=== PATIENT | female | born 1970 | race Two or more races ===

== ENCOUNTER 2018-09-22 17:13 | Emergency (ER) | payer OTHER ==
[~2018-09-22] VITALS: Ht 154.9 cm; Wt 93.0 kg
[~2018-09-22 17:13] MED LIST: CLEOCIN HCL300 MG PO; IBUPROFEN800 MG PO; ULTRAM50 MG PO
[2018-09-22] MEDS ORDERED: METIMAZOL (17:33)
== END 2018-09-22 19:34 | disposition home or self-care (01) ==
LOC: ER 17:13
DX: J11.1 Influenza due to unidentified influenza virus with other respiratory manifestations (principal)

== ENCOUNTER 2019-05-25 16:57 | Emergency (ER) | payer OTHER ==
[~2019-05-25] VITALS: Ht 157.5 cm; Wt 106.1 kg
[~2019-05-25 16:57] MED LIST changes: +METIMAZOL
== END 2019-05-25 19:59 | disposition home or self-care (01) ==
LOC: ER 16:57
DX: R53.1 Weakness (principal)

== ENCOUNTER 2023-05-06 07:19 | Outpatient (CLI) | payer OTHER | END 2023-05-06 07:21 | disposition home or self-care (01) | LOC: NUCLEAR 07:19 | DX: E05.00 Thyrotoxicosis with diffuse goiter without thyrotoxic crisis or storm (principal); I73.89 Other specified peripheral vascular diseases ==

== ENCOUNTER 2023-05-07 07:37 | Outpatient (CLI) | payer OTHER | END 2023-05-07 07:49 | disposition home or self-care (01) | LOC: NUCLEAR 07:37 | DX: E05.00 Thyrotoxicosis with diffuse goiter without thyrotoxic crisis or storm (principal) ==

== ENCOUNTER 2023-06-28 10:11 | Emergency (ER) | payer OTHER ==
[~2023-06-28] VITALS: Ht 154.9 cm; Wt 99.8 kg
== END 2023-06-28 18:24 | disposition home or self-care (01) ==
LOC: ER 10:11
PROVIDERS: Emergency Medicine
DX: R10.32 Left lower quadrant pain (principal); N20.0 Calculus of kidney; K76.0 Fatty (change of) liver, not elsewhere classified; E11.9 Type 2 diabetes mellitus without complications; Z79.84 Long term (current) use of oral hypoglycemic drugs; I10 Essential (primary) hypertension; E03.9 Hypothyroidism, unspecified

== ENCOUNTER 2024-04-11 09:04 | Outpatient (CLI) | payer OTHER | END 2024-04-11 09:14 | disposition home or self-care (01) | LOC: SONOGRAMA 09:04 | DX: E05.90 Thyrotoxicosis, unspecified without thyrotoxic crisis or storm (principal); E04.1 Nontoxic single thyroid nodule; E11.65 Type 2 diabetes mellitus with hyperglycemia ==

== ENCOUNTER 2024-05-23 09:18 | Outpatient (CLI) | payer OTHER | END 2024-05-23 09:22 | disposition home or self-care (01) | LOC: SONOGRAMA 09:18 | PROVIDERS: ATTEND Pathology Anatomic Pathology & Clinical Pathology | DX: D34 Benign neoplasm of thyroid gland (principal); E07.89 Other specified disorders of thyroid; E06.3 Autoimmune thyroiditis; E04.2 Nontoxic multinodular goiter ==